=== PATIENT | male | born 1980 | race Caucasian/White ===

== ENCOUNTER 2017-05-05 15:31 | Emergency (ER) | payer SELFPAY ==
[~2017-05-05] VITALS: Ht 177.8 cm; Wt 90.7 kg
--- NOTE | 2017-05-05 15:37 | NUR ---
pt bibra to er bed 14. etoh. found lying by a [employer] bus. no obvious trauma noted. arousable, states had too much to drink. placed on monitor w/ stable vitals noted. awaiting md nava.
--- NOTE | 2017-05-05 15:40 | NUR ---
ran hodges at bedside for eval.
[2017-05-05 15:45] LABS: BASOPHILS % (AUTO) 0.7 % (0.0-2.0); EOSINOPHILS % (AUTO) 0.7 % (0.0-6.0); HEMATOCRIT 43 % (39-51); HEMOGLOBIN 14.4 g/dL (13.5-17.5); LYMPHOCYTES # (AUTO) 2.2 /CMM (0.8-4.8); LYMPHOCYTES % (AUTO) 34.8 % (20.0-44.0); MEAN CORPUSCULAR HEMOGLOBIN 31 PG (26.0-33.0); MEAN CORPUSCULAR HGB CONC 34 g/dl (31.0-36.0); MEAN CORPUSCULAR VOLUME 92 fL (80-96); MONOCYTES # (AUTO) 0.5 /CMM (0.1-1.30); MONOCYTES % (AUTO) 7.3 % (2.0-12.0); NEUTROPHILS # (AUTO) 3.6 /CMM (1.8-8.9); NEUTROPHILS % (AUTO) 56.5 % (43.0-81.0); PLATELET COUNT (AUTO) 294 /CMM (150-450); RDW COEFFICIENT OF VARIATION 13.1 (11.5-15.0); RED BLOOD CELL COUNT(AUTO) 4.67 MIL/uL (4.5-6.0); WHITE BLOOD COUNT (AUTO) 6.3 K/uL (4.3-11.0)
[2017-05-05 15:55] LABS: CALCIUM, SERUM 8.4 mg/dL (8.5-10.1); CARBON DIOXIDE 27 mmol/L (21-32); CHLORIDE 103 mmol/L (98-107); CREATININE 1.2 mg/dL (0.6-1.3); GLUCOSE 101 mg/dL (74-106); SODIUM SERUM 137 mmol/L (136-145); UREA NITROGEN, BLOOD 9 mg/dL (7-18)
[2017-05-05 16:02] LABS: ALANINE AMINOTRANSFERASE 36 U/L (12-78); ALBUMIN 4.1 g/dL (3.4-5.0); ALCOHOL, BLOOD 378 mg/dL (0-0); ALKALINE PHOSPHATASE 65 U/L (46-116); ASPARTATE AMINOTRANSFERASE 24 U/L (15-37); BILIRUBIN,DIRECT 0.1 mg/dL (0.0-0.2); BILIRUBIN,TOTAL 0.4 mg/dL (0.2-1.0); TOTAL PROTEIN, SERUM 7.4 g/dL (6.4-8.2)
[2017-05-05 16:03] LABS: ACETAMINOPHEN < 10 ug/ml (10-30); SALICYLATE 2.7 mg/dL (2.8-20.0)
--- NOTE | 2017-05-05 19:14 | NUR ---
pt ambulatory w/ steady gait. [id number].Patient discharged to home in stable condition. Written and verbal after care instructions given. Patient verbalizes understanding of instruction.
[2017-05-05 19:15] VITALS: BP 132/66
== END 2017-05-05 19:16 | disposition home or self-care (01) ==
LOC: ER 15:33
DX: F10.129 Alcohol abuse with intoxication, unspecified (principal)
CPT/HCPCS: 36415; 80048-TC; 80076-TC; 85025-TC; A4606; G0480; Z7610

== ENCOUNTER 2017-05-06 01:02 | Emergency (ER) | payer SELFPAY ==
[~2017-05-06] VITALS: Ht 177.8 cm; Wt 90.7 kg
[2017-05-06 01:05] VITALS: BP 117/53
--- NOTE | 2017-05-06 02:17 | NUR ---
Patient eloped from facility. ER MD notified.
== END 2017-05-06 04:26 | disposition left against medical advice (07) ==
LOC: ER 01:05
DX: F10.10 Alcohol abuse, uncomplicated (principal); R79.89 Other specified abnormal findings of blood chemistry
CPT/HCPCS: 82962-TC; A4606; Z7610